=== PATIENT | female | born 1950 | race Caucasian/White ===

== ENCOUNTER 2020-08-05 11:10 | Emergency (ER) | payer OTHER ==
[~2020-08-05] VITALS: Ht 152.4 cm; Wt 84.8 kg
[2020-08-05 11:19] VITALS: BP 173/107
--- NOTE | 2020-08-05 11:53 | NUR ---
69 YEAR OLD FEMALE COMPLAINS OF DIZZINESS X YESTERDAY, DIFFICULTY WITH AMBULATION. BP 155/49, HR 56. PT AOX4, BREATHING EVEN AND UNLABORED, SKIN WARM AND DRY. BED IN LOWEST POSITION, LOCKED, BED RAIL UPX1. PMH - HTN ALLERGIES - NKA
--- NOTE | 2020-08-05 12:35 | NUR ---
PT REFUSED CT, ERMD AWARE
--- NOTE | 2020-08-05 12:36 | NUR ---
DR KAPOOR SPEAKING WITH PATIENT AT BEDSIDE. PT NOW WILLING TO HAVE CT SCAN, LEFT WITH POLITICAL GEOGRAPHER FOR IMAGING.
--- NOTE | 2020-08-05 12:46 | NUR ---
RETURN FROM CT.
[2020-08-05] MEDS ORDERED: MECLIZINE 25 MG TAB PO ONE (12:55)
--- NOTE | 2020-08-05 13:06 | NUR ---
Pt in bed, equal visible rise and fall of chest, VSS, will continue to monitor.
--- NOTE | 2020-08-05 13:38 | NUR ---
PT ALERT AND AWAKE, BREATHING EVEN AND UNLABORED. NO DISTRESS NOTED.
[2020-08-05] MEDS ORDERED: MECL-303 PO (13:54)
[2020-08-05 14:23] VITALS: BP 173/107
--- NOTE | 2020-08-05 14:23 | NUR ---
Patient discharged with v/s stable. Written and verbal after care instructions dizziness given and explained. Patient alert, oriented and verbalized understanding of instructions. Ambulatory with steady gait. All questions addressed prior to discharge. ID band removed. Patient advised to follow up with PMD. Rx of meclizine given. Patient educated on indication of medication including possible reaction and side effects. Opportunity to ask questions provided and answered.
== END 2020-08-05 14:23 | disposition home or self-care (01) ==
LOC: MED 11:10
DX: R42 Dizziness and giddiness (principal); H92.01 Otalgia, right ear; R11.2 Nausea with vomiting, unspecified; I10 Essential (primary) hypertension
CPT/HCPCS: 70450; 93005; 99284; J8597

== ENCOUNTER 2021-06-14 10:31 | Emergency (ER) | payer OTHER ==
[~2021-06-14] VITALS: Ht 148.6 cm; Wt 84.1 kg
[~2021-06-14 10:31] MED LIST: MECL-303 PO
[2021-06-14 10:43] VITALS: BP 139/118
--- NOTE | 2021-06-14 10:47 | NUR ---
LOBBY. Patient being evaluated by physician at bedside.
--- NOTE | 2021-06-14 10:50 | NUR ---
NO NURSING INTERVENTIONS NEEDED. SEEN & TREAT BY DR HURLEY.
[2021-06-14 10:55] VITALS: BP 139/118
--- NOTE | 2021-06-14 10:55 | NUR ---
Patient discharged with v/s stable. Written and verbal after care instructions given and explained. Patient verbalized understanding. Ambulatory with steady gait. All questions addressed prior to discharge. Advised to follow up with PMD.
== END 2021-06-14 10:55 | disposition home or self-care (01) ==
LOC: MED 10:31
DX: G51.0 Bell's palsy (principal); R51.9 Headache, unspecified; H92.01 Otalgia, right ear; I10 Essential (primary) hypertension; Z79.899 Other long term (current) drug therapy
CPT/HCPCS: 99282

== ENCOUNTER 2023-11-01 13:20 | Emergency (ER) | payer MEDICARE, OTHER ==
[~2023-11-01] VITALS: Ht 142.2 cm; Wt 79.9 kg
[2023-11-01 13:40] VITALS: BP 151/48; PULSE 54; RESP 17; TEMP 97.9; O2SAT 97
[2023-11-01] MEDS ORDERED: ACET-8905 PO (15:16)
[2023-11-01] MEDS: KETOROLAC 60 MG/2 ML VIAL IM ONE (15:36)
== END 2023-11-01 15:55 | disposition home or self-care (01) ==
LOC: MED 13:20
DX: M54.50 Low back pain, unspecified (principal); I10 Essential (primary) hypertension; Z79.899 Other long term (current) drug therapy
CPT/HCPCS: 81002; 96372; 99283; J1885; 81025